=== PATIENT | female | born 1980 | race Caucasian/White ===

== ENCOUNTER 2017-04-19 10:50 | Emergency (ER) | payer MEDICAID ==
[~2017-04-19] VITALS: Ht 162.6 cm; Wt 105.0 kg
[~2017-04-19 10:50] MED LIST: Z.0.NO CURRENT MEDS
[2017-04-19 10:54] VITALS: BP 126/77; PULSE 87; RESP 20; TEMP 97.6; O2SAT 99
--- NOTE | 2017-04-19 11:04 | PD ---
HPI Chief Complaint: Cold / Flu Symptoms Time Seen by Provider: 11:03 Travel History International Travel<30 days: No Contact w/Intl Traveler<30days: No Traveled to known affect area: No History of Present Illness HPI 36 YO F presents to the ED for evaluation of sinus pressure, nonproductive cough 2 weeks. Patient states that she saw her primary care provider and took antibiotics but symptoms have not improved. She endorses chills. She denies fevers, rhinorrhea, sore throat, nausea, vomiting. She also complains of tender , red spot on the left breast. She states she just noticed it today. Denies any known trauma or bug bites. Current smoker. PFSH Past Medical History Cancer: Yes Diminished Hearing: No Past Surgical History Gynecologic Surgery: Yes (CERVIX CANCER) Social History Alcohol Use: No Tobacco Use: No Substance Use: No Allergies-Medications (Allergen,Severity, Reaction): Coded Allergies: No Known Allergies (Verified Allergy, Mild, 05/28/07) Reported Meds & Prescriptions Reported Meds & Active Scripts Active Tessalon Perles (Benzonatate) 100 Mg Cap 200 Mg PO TID PRN Bactrim DS (Sulfamethoxazole-Trimethoprim) 800-160 Mg Tab 1 Tab PO BID Reported No Current Meds (Miscellaneous Medication) Misc Review of Systems Except as stated in HPI: all other systems reviewed are Neg Physical Exam Narrative GENERAL: Well-nourished, well-developed white female in no acute distress. SKIN: Warm and dry. There is a 1-2 cm indurated area on the medial aspect of the left breast. It's warm and erythematous but there is no fluctuance or lymphatic streaking. HEAD: Normocephalic. Atraumatic. No tenderness to palpation of the facial sinuses. EYES: No scleral icterus. No injection or drainage. PERRLA. EOMI. ENT: Pearly reid tympanic membranes bilaterally. Nasal mucosa is moist. Oropharynx without erythema, edema or exudate. NECK: Supple, trachea midline. No JVD or lymphadenopathy. CARDIOVASCULAR: Regular rate and rhythm without murmurs, gallops, or rubs. 2+ DP and radial pulses bilaterally. RESPIRATORY: Breath sounds clear and equal bilaterally. No accessory muscle use. GASTROINTESTINAL: Abdomen soft, non-tender, nondistended. + Bowel sounds MUSCULOSKELETAL: No cyanosis, or edema. Ambulatory, moves extremities spontaneously. BACK: Nontender without obvious deformity. No CVA tenderness. Data Data Last Documented VS Vital Signs Date Time Temp Pulse Resp B/P Pulse Ox O2 Delivery O2 Flow Rate FiO2 04/19/17 10:54 97.6 87 20 126/77 99 Room Air MDM Medical Decision Making Medical Screen Exam Complete: Yes Emergency Medical Condition: Yes Differential Diagnosis Furuncle versus carbuncle versus folliculitis versus chronic cough versus other Narrative Course 36 YO F presents to the ED for evaluation of sinus pressure, nonproductive cough 2 weeks. Patient states that she saw her PCP and took unknown antibiotic but cough continues. endorses chills. She denies fevers, rhinorrhea , sore throat, nausea, vomiting. She also complains of tender, red spot on the left breast today. Current smoker. Vitals reviewed. Patient is well-appearing. No tenderness palpation of the facial sinuses. There is a 1-2 cm erythematous , tender, indurated nodule the medial aspect of the left chest wall. Suspect folliculitis or early cellulitis. We'll treat with Bactrim DS twice a day 7 days, Tessalon Perles every 8 hours as needed for cough, follow up with primary care provider. The patient was counseled to quit smoking. She is stable and discharged home. Diagnosis Primary Impression: Cellulitis Qualified Code: L03.313 - Cellulitis of chest wall Additional Impression: Chronic cough Referrals: Primary Care Physician Patient Instructions: Acute Cough (GEN), Cellulitis (DC), General Instructions Additional Instructions: Rest, hydrate. Take all antibiotics as prescribed, even if symptoms resolve. Tessalon Perles every 8 hours as needed for cough. Follow-up with your primary care provider as planned. Return to the ED for any urgent or emergent medical condition. Med/Other Pt SpecificInfo: Prescription(s) given Scripts Benzonatate (Tessalon Perles)100 Mg Bil988 Mg PO TID PRN (COUGH) #15 CAP Ref 0 Prov:Harjit Lau MD 04/19/17 Sulfamethoxazole-Trimethoprim (Bactrim DS)800-160 Mg Tab1 Tab PO BID #14 TAB Ref 0 Prov:Harjit Lau MD 04/19/17 Disposition: 01 DISCHARGE HOME Condition: Stable Laina Donahue Apr 19, 2017 11:04
[2017-04-19] MEDS ORDERED: BENZ100 PO (11:16)
[2017-04-19] MEDS ORDERED: BACT800T5 PO (11:16)
[2017-04-19 11:23] VITALS: BP 142/87
== END 2017-04-19 11:26 | disposition home or self-care (01) ==
LOC: NEPD 10:50
DX: L03.313 Cellulitis of chest wall (principal); R05 Cough; Z79.899 Other long term (current) drug therapy
CPT/HCPCS: 99284

== ENCOUNTER 2017-09-10 01:31 | Emergency (ER) | payer MEDICAID ==
[~2017-09-10] VITALS: Ht 162.6 cm; Wt 118.0 kg
[~2017-09-10 01:31] MED LIST changes: +BACT800T5 PO; +BENZ100 PO
[2017-09-10 01:51] VITALS: BP 134/76; PULSE 102; RESP 19; TEMP 98.5; O2SAT 99
[2017-09-10] MEDS ORDERED: ALBUAER3 INH (01:57)
[2017-09-10] MEDS ORDERED: FERR325T18 PO (01:57)
[2017-09-10] MEDS ORDERED: DICL75TA PO (01:57)
[2017-09-10] MEDS ORDERED: LEVO500T8 PO (01:57)
--- NOTE | 2017-09-10 02:05 | PD ---
HPI Chief Complaint: Respiratory Symptoms Time Seen by Provider: 02:03 Travel History International Travel<30 days: No Contact w/Intl Traveler<30days: No Traveled to known affect area: No History of Present Illness HPI The patient is a 37 year old female who presents to the [facility] emergency department with a history of intermittent cough, congestion, chest tightness and shortness of breath that she reports has been waxing and waning in severity for the last several months. She reports that she's been under primary care physician 4 times regarding this. She reports that she's been on multiple courses of antibiotic. She reports that she is unsure whether she's been referred to a specialist. She reports that she has a follow-up appointment scheduled with her primary care physician next week. The patient reports that over the last 2 days her symptoms of "worsened. She reports that she has night sweats and subjective fever. She reports that her cough is dry in character. She was concerned that she may have pneumonia. She denies having any recent blood work or chest x-ray. She reports that she quit smoking 3 weeks ago. She reports that she last used her rescue inhaler a few hours ago. On review of systems, the patient denies having any neck pain, abdominal pain, vomiting, urinary symptoms, or neurologic symptoms. The patient reports that she has recently had diarrhea. She reports that she had 4 episodes in the last 24 hours. She denies having any blood or mucus in her stool. [facility] Past Medical History Narrative Medical The patient's past medical history is significant for a recent diagnosis of asthma, history of chronic cough, history of lymphoma currently in remission status post chemotherapy, history of cervical cancer. Cancer: Yes (lymphoma, cervical) Diminished Hearing: No Tetanus Vaccination: Unknown Influenza Vaccination: No ?: Not Past Surgical History Narrative Surgical The patient's past surgical history is significant for a conization, cryotherapy of the cervix. Gynecologic Surgery: Yes (CERVIX CANCER) Social History Alcohol Use: No Tobacco Use: No Substance Use: No Allergies-Medications (Allergen,Severity, Reaction): Coded Allergies: No Known Allergies (Verified Allergy, Mild, 05/28/07) Reported Meds & Prescriptions Reported Meds & Active Scripts Active Medrol Dosepak (Methylprednisolone) 4 Mg Dspk 4 Mg PO DIRECTED Per Pharmacist direction Reported Levofloxacin 500 Mg Tablet 500 Mg PO DAILY Diclofenac Sodium DR (Diclofenac Sodium) 75 Mg Tabdr 75 Mg PO DAILY Proair Hfa 8.5 GM Inh (Albuterol Sulfate) 90 Mcg/Act Aer 2 Puff INH Q4-6H PRN 108 mcg/actuation Ferrous Sulfate 325 Mg (65 Mg Iron) Tablet 325 Mg PO DAILY Review of Systems Except as stated in HPI: all other systems reviewed are Neg General / Constitutional: Positive: Fever, Chills Eyes: No: Visual changes HENT: Positive: Congestion, No: Headaches Cardiovascular: Positive: Chest Pain or Discomfort (chest tightness), Dyspnea on exertion Respiratory: Positive: Cough, No: Shortness of Breath Gastrointestinal: Positive: Diarrhea, Changes in Bowel Habits, No: Nausea, Vomiting, Abdominal Pain, Indigestion, Loss of Appetite Genitourinary: No: Dysuria Musculoskeletal: No: Pain Skin: No Rash Neurologic: No: Weakness Psychiatric: No: Depression Endocrine: No: Polydipsia Hematologic/Lymphatic: No: Easy Bruising Physical Exam Narrative General: The patient is a well-developed well-nourished female in no acute distress. The patient has an odor of cigarettes about her. Head and Neck exam: Head is normocephalic atraumatic. Eyes: EOMI, pupils are equal round and reactive to light. Nose: Midline septum with pink mucous membranes Mouth: Dentition unremarkable. Moist mucus membranes. Posterior oropharynx is not erythematous. No tonsillar hypertrophy. Uvula midline. Airway patent. Neck: No palpable lymphadenopathy. No nuchal rigidity. No thyromegaly. Cardiovascular: Sinus tachycardia in the low 100 without murmurs, gallops, or rubs. No pulse deficit to the extremities on simultaneous auscultation and palpation of her radial artery. Lungs: Soft expiratory wheezes audible, no rhonchi, no crackles. No accessory muscle use. No paroxysmal abdominal breathing. Abdomen: Soft, without tenderness to palpation in all 4 quadrants of the abdomen. No guarding, rebound, or rigidity. Normal bowel sounds are audible. No tenderness on palpation of McBurney's point. Extremities: No clubbing, cyanosis, or edema. 2+ pulses in all 4 extremities. No calf tenderness on palpation. Back: No costovertebral angle tenderness to palpation. Neurologic Exam: Grossly nonfocal. Skin Exam: No rash noted. Intact skin that is warm and dry. Data Data Last Documented VS Vital Signs Date Time Temp Pulse Resp B/P (MAP) Pulse Ox O2 Delivery O2 Flow Rate FiO2 09/10/17 02:44 19 97 Room Air 09/10/17 02:35 21 09/10/17 01:51 98.5 102 134/76 (95) Orders Orders Chest, Pa & Lat (09/10/17 02:02) Electrocardiogram (09/10/17 02:31) Complete Blood Count With Diff (09/10/17 02:31) Comprehensive Metabolic Panel (09/10/17 02:31) Creatine Kinase (Cpk) (09/10/17 02:31) Ckmb (Isoenzyme) Profile (09/10/17 02:31) Troponin I (09/10/17 02:31) B-Type Natriuretic Peptide (09/10/17 02:31) Prothrombin Time / Inr (Pt) (09/10/17 02:31) Act Partial Throm Time (Ptt) (09/10/17 02:31) Lipase (09/10/17 02:31) Urinalysis - C+S If Indicated (09/10/17 02:31) D-Dimer (09/10/17 02:31) Thyroid Stimulating Hormone (09/10/17 02:31) Iv Access Insert/Monitor (09/10/17 02:31) Ecg Monitoring (09/10/17 02:31) Oximetry (09/10/17 02:31) Ed Urine Pregnancytest Poc (09/10/17 02:31) Methylprednisolone So Succ Inj (Solumedr (09/10/17 02:45) Albuterol-Ipratropium Neb (Duoneb Neb) (09/10/17 02:45) Ed Discharge Order (09/10/17 04:29) Labs Laboratory Tests Test 09/10/17 02:15 White Blood Count 11.6 TH/MM3 Red Blood Count 4.55 MIL/MM3 Hemoglobin 13.7 GM/DL Hematocrit 41.6 % Mean Corpuscular Volume 91.3 FL Mean Corpuscular Hemoglobin 30.1 PG Mean Corpuscular Hemoglobin Concent 33.0 % Red Cell Distribution Width 14.2 % Platelet Count 256 TH/MM3 Mean Platelet Volume 9.0 FL Neutrophils (%) (Auto) 77.5 % Lymphocytes (%) (Auto) 16.2 % Monocytes (%) (Auto) 3.9 % Eosinophils (%) (Auto) 1.6 % Basophils (%) (Auto) 0.8 % Neutrophils # (Auto) 9.0 TH/MM3 Lymphocytes # (Auto) 1.9 TH/MM3 Monocytes # (Auto) 0.5 TH/MM3 Eosinophils # (Auto) 0.2 TH/MM3 Basophils # (Auto) 0.1 TH/MM3 CBC Comment DIFF FINAL Differential Comment Prothrombin Time 10.5 SEC Prothromb Time International Ratio 1.0 RATIO Activated Partial Thromboplast Time 28.2 SEC D-Dimer Quantitative (PE/DVT) LESS THAN 0.19 MG/L FEU Blood Urea Nitrogen 13 MG/DL Creatinine 0.77 MG/DL Random Glucose 105 MG/DL Total Protein 7.8 GM/DL Albumin 3.8 GM/DL Calcium Level 8.6 MG/DL Alkaline Phosphatase 70 U/L Aspartate Amino Transf (AST/SGOT) 19 U/L Alanine Aminotransferase (ALT/SGPT) 24 U/L Total Bilirubin 0.3 MG/DL Sodium Level 139 MEQ/L Potassium Level 3.7 MEQ/L Chloride Level 103 MEQ/L Carbon Dioxide Level 26.4 MEQ/L Anion Gap 10 MEQ/L Estimat Glomerular Filtration Rate 85 ML/MIN Total Creatine Kinase 67 U/L Troponin I LESS THAN 0.02 NG/ML Lipase 76 U/L Thyroid Stimulating Hormone 3rd Gen 1.880 uIU/ML MDM Medical Decision Making Medical Screen Exam Complete: Yes Emergency Medical Condition: Yes Medical Record Reviewed: Yes Interpretation(s) Last Impressions Chest X-Ray 09/10/17 0202 Signed Impressions: Service Date/Time: Sunday, September 10, 2017 02:25 - CONCLUSION: No evidence of acute cardiopulmonary disease. Silvino Shelton MD Differential Diagnosis Bronchitis, versus pneumonia, versus pulmonary embolism, versus pneumothorax, versus acute coronary syndrome Narrative Course During the course of the patients emergency department visit, the patients history, examination, and differential diagnosis were reviewed with the patient. The patient was placed on a quality assurance monitor final with oximetry and frequent blood pressure monitoring. The patient had IV access obtained and blood work sent for analysis. The patient was initially provided Solu-Medrol 125 mg IV, DuoNeb 3. The patient reportedly is taking Levaquin currently. The patients laboratory studies were reviewed and remarkable for a white count of 11.6, hemoglobin 13.7, platelets 256 with 77.5 neutrophils, CMP is remarkable for a GFR of 85, CPK 67, troponin I less than 0.02, lipase 76, TSH 1.88, PT PTT within normal limits. D-dimer is less than 0.19 decreasing the likelihood of pulmonary embolism in this patient with no other significant risk factors. Radiology studies were reviewed and remarkable for a chest x-ray that shows no evidence of acute cardiopulmonary disease. The patient is instructed to avoid cigarettes. The patient reports that she does not smoke, however there is an odor of cigarettes in her ER room. She reports that she lives with several smokers. The patient is instructed to continue using her rescue inhaler as previously instructed. She is instructed to continue the Levaquin prescription until it is completed. She will be given a prescription for a Medrol Dosepak taper. The patient is resting comfortably and feels better, is alert and in no distress. The patients results and examination findings were discussed with the patient. The repeat examination is unremarkable and benign. The history, exam, diagnostic testing, and current condition do not suggest any significant pathology to warrant further testing, continued ED treatment, admission, or surgical evaluation at this point. The vital signs have been stable. The patient does not have uncontrollable pain, intractable vomiting, or other significant symptoms. The patient's condition is stable and appropriate for discharge. The patient will pursue further outpatient evaluation with a primary care physician or other designated or consulting physician as indicated in the discharge instructions. The patient expressed understanding and was agreeable with this plan. Diagnosis Primary Impression: Bronchitis Additional Impression: Reactive airway disease with acute exacerbation Qualified Codes: J45.21 - Mild intermittent asthma with (acute) exacerbation Referrals: Ambrose Jeff MD 1 week Primary Care Physician 3 days Med/Other Pt SpecificInfo: Prescription(s) given Scripts Methylprednisolone Dosepak (Medrol Dosepak) 4 Mg Dspk 4 MG PO DIRECTED, #1 DSPK 0 Refills Per Pharmacist direction Prov: Sadia Sarmiento MD 09/10/17 Disposition: 01 DISCHARGE HOME Condition: Stable Sadia Sarmiento MD Sep 10, 2017 02:05
[2017-09-10 02:35] VITALS: O2SAT 97
[2017-09-10] MEDS: RESP: ALBUTEROL 2.5 MG/IPRATROPIUM 0.5 MG NEB (SCH) INH (02:37)
--- NOTE | 2017-09-10 02:40 | RADRPT ---
EXAM DATE/TIME: 09/10/2017 02:25 [place] COMPARISON: No previous studies available for comparison. INDICATIONS : Cough, fever, and weakness x 1 month MEDICAL HISTORY : None. SURGICAL HISTORY : None. ENCOUNTER: Initial ACUITY: 1 month PAIN SCORE: 6/10 LOCATION: Bilateral chest FINDINGS: PA and lateral views of the chest demonstrate the lungs to be symmetrically aerated without evidence of mass, infiltrate or effusion. The cardiomediastinal contours are unremarkable. Osseous structure s are intact. CONCLUSION: No evidence of acute cardiopulmonary disease. Silvino Shelton MD on September 10, 2017 at 2:38 Board Certified Radiologist. This report was verified electronically.
[2017-09-10 02:44] VITALS: RESP 19; O2SAT 97
[2017-09-10] MEDS ORDERED: methylPREDNISolone SOD SUCC 125 MG/2 ML VIAL IV PUSH ONE (02:45)
[2017-09-10 03:23] LABS: BASOPHIL # 0.1 TH/MM3 (0-0.2); BASOPHIL % 0.8 % (0.0-2.0); EOSINOPHIL # 0.2 TH/MM3 (0-0.4); EOSINOPHIL % 1.6 % (0.0-4.0); HEMATOCRIT 41.6 % (35.0-46.0); HEMO FLAGS DIFF FINAL; LYMPH % 16.2 % (9.0-44.0); LYMPHOCYTE # 1.9 TH/MM3 (1.0-4.8); MEAN CELL VOLUME 91.3 FL (80.0-100.0); MEAN CORPUSCULAR HEMOGLOBIN 30.1 PG (27.0-34.0); MONO % 3.9 % (0.0-8.0); NEUT % 77.5 % (16.0-70.0); PLATELET COUNT 256 TH/MM3 (150-450); RED BLOOD COUNT 4.55 MIL/MM3 (4.00-5.30); RED CELL DISTRIBUTION WIDTH 14.2 % (11.6-17.2); WHITE BLOOD COUNT 11.6 TH/MM3 (4.0-11.0)
[2017-09-10 03:32] LABS: APTT (PATIENT) 28.2 SEC (24.3-30.1); PROTHROMBIN TIME - PATIENT 10.5 SEC (9.8-11.6)
[2017-09-10 03:36] LABS: ANION GAP 10 MEQ/L (5-15); AST (GOT) 19 U/L (15-37); BICARBONATE 26.4 MEQ/L (21.0-32.0); BLOOD UREA NITROGEN 13 MG/DL (7-18); CHLORIDE 103 MEQ/L (98-107); GLOMERULAR FILTRATION RATE 85 ML/MIN (>89); POTASSIUM 3.7 MEQ/L (3.5-5.1); SODIUM (NA) 139 MEQ/L (136-145)
[2017-09-10 03:47] LABS: ALKALINE PHOSPHATASE 70 U/L (45-117); ALT (GPT) 24 U/L (10-53); TOTAL BILIRUBIN ADULT 0.3 MG/DL (0.2-1.0)
[2017-09-10 03:57] LABS: CREATINE KINASE 67 U/L (26-192)
[2017-09-10] MEDS ORDERED: MEDR4PAK PO (04:13)
--- NOTE | 2017-09-10 15:16 | EKG ---
Date Performed: 09/10/2017 Time Performed: 03:10:55 PTAGE: 37 years EKG: SINUS TACHYCARDIA ABNORMAL RHYTHM ECG NO PREVIOUS TRACING DOCTOR: Jeffrey Ríos Interpretating Date/Time 09/10/2017 15:15:08
== END 2017-09-10 05:00 | disposition home or self-care (01) ==
LOC: NEPE 01:31
DX: J40 Bronchitis, not specified as acute or chronic (principal); R19.7 Diarrhea, unspecified; J45.901 Unspecified asthma with (acute) exacerbation; R00.0 Tachycardia, unspecified; R94.31 Abnormal electrocardiogram [ECG] [EKG]; Z85.72 Personal history of non-Hodgkin lymphomas; Z79.899 Other long term (current) drug therapy
CPT/HCPCS: 71020; 80053; 82550; 83690; 83880; 84443; 84484; 84703; 85025; 85379; 85610; 85730; 93005; 94640; 94664; 96374; 99285; J2930